=== PATIENT | male | born 1995 | race Caucasian/White ===

== ENCOUNTER 2017-06-19 23:13 | Emergency (ER) | payer SELFPAY ==
[2017-06-20 02:47] VITALS: BP 124/77
== END 2017-06-20 02:47 | disposition home or self-care (01) ==
LOC: ED 23:13
DX: S01.112A Laceration without foreign body of left eyelid and periocular area, initial encounter (principal); W51.XXXA Accidental striking against or bumped into by another person, initial encounter; Y93.67 Activity, basketball; Y92.89 Other specified places as the place of occurrence of the external cause; Y99.8 Other external cause status
CPT/HCPCS: J2001

== ENCOUNTER 2019-05-27 22:53 | Emergency (ER) | payer SELFPAY ==
[~2019-05-27] VITALS: Ht 172.7 cm; Wt 74.8 kg
[2019-05-27 23:02] VITALS: Ht 172.7 cm; Wt 74.8 kg
[2019-05-28 00:42] VITALS: BP 110/71
== END 2019-05-28 00:42 | disposition home or self-care (01) ==
LOC: ED 22:53
DX: S50.01XA Contusion of right elbow, initial encounter (principal); Z98.890 Other specified postprocedural states; W01.0XXA Fall on same level from slipping, tripping and stumbling without subsequent striking against object, initial encounter; Y93.89 Activity, other specified; Y92.89 Other specified places as the place of occurrence of the external cause; Y99.8 Other external cause status
CPT/HCPCS: Q0092